=== PATIENT | male | born 1955 | race Caucasian/White ===

== ENCOUNTER 2017-08-23 09:33 | Day surgery (SDC) | payer OTHER, BC ==
[~2017-08-23] VITALS: Ht 182.9 cm; Wt 129.1 kg
[~2017-08-23 09:33] MED LIST: CENTRUM SILVER1 TA1; CLARITIN 1010 MG/TAB PO; DAYPRO 600600 MG; FERREX 150150 MG; LIALDA 1.2 GM1.2 GM PO; LIPITOR 40MG TA40 MG; POLY-IRON 150150 MG PO; PRILOSEC 20MG20 MG PO; SULFADIAZINE500 MG PO; ZYLOPRIM 300MG300 MG PO
[2017-08-23 10:07] VITALS: BP 133/83; PULSE 76; TEMP 98.8
[2017-08-23] MEDS ORDERED: PROTONIX 40MG T40 MG PO (10:19)
[2017-08-23] MEDS ORDERED: DEPO-TESTOS200 MG/M1 IM (10:22)
[2017-08-23] MEDS ORDERED: TUMS SMOOTHIES750 M1 PO (10:23)
[2017-08-23 11:09] VITALS: BP 119/82; PULSE 76; TEMP 97.7
[2017-08-23 11:15] VITALS: BP 128/94; PULSE 78
[2017-08-23 11:30] VITALS: BP 117/81; PULSE 71
== END 2017-08-23 11:45 | disposition home or self-care (01) ==
LOC: SDCO 09:33
DX: K21.0 Gastro-esophageal reflux disease with esophagitis (principal); K22.70 Barrett's esophagus without dysplasia; E78.00 Pure hypercholesterolemia, unspecified; K92.1 Melena; M19.90 Unspecified osteoarthritis, unspecified site; E66.9 Obesity, unspecified; K51.90 Ulcerative colitis, unspecified, without complications; F17.200 Nicotine dependence, unspecified, uncomplicated
CPT/HCPCS: OP; J2250; J3010; J7030

== ENCOUNTER 2018-08-22 09:18 | Day surgery (SDC) | payer OTHER, BC ==
[~2018-08-22] VITALS: Ht 177.8 cm; Wt 126.4 kg
[~2018-08-22 09:18] MED LIST changes: -DAYPRO 600600 MG; +DAYPRO 600600 MG PO; +DEPO-TESTOS200 MG/M1 IM; -LIPITOR 40MG TA40 MG; +LIPITOR 40MG TA40 MG PO; +PROTONIX 40MG T40 MG PO; +TUMS500 MG PO
[2018-08-22] MEDS ORDERED: COZAAR100 MG PO (09:54)
[2018-08-22 10:33] VITALS: BP 126/86; PULSE 70; TEMP 98.3
[2018-08-22 12:15] VITALS: BP 123/80; PULSE 74; TEMP 97.6
[2018-08-22 12:30] VITALS: BP 133/92; PULSE 56
[2018-08-22 12:45] VITALS: BP 140/90; PULSE 56
[2018-08-22 13:00] VITALS: BP 133/97; PULSE 57
== END 2018-08-22 13:30 | disposition home or self-care (01) ==
LOC: SDCO 09:18
DX: Z12.11 Encounter for screening for malignant neoplasm of colon (principal); K57.30 Diverticulosis of large intestine without perforation or abscess without bleeding; K51.20 Ulcerative (chronic) proctitis without complications; E78.00 Pure hypercholesterolemia, unspecified; K51.30 Ulcerative (chronic) rectosigmoiditis without complications; M19.90 Unspecified osteoarthritis, unspecified site; K92.1 Melena; M10.9 Gout, unspecified; K21.0 Gastro-esophageal reflux disease with esophagitis; K22.70 Barrett's esophagus without dysplasia; I10 Essential (primary) hypertension; E66.01 Morbid (severe) obesity due to excess calories; Z68.41 Body mass index [BMI] 40.0-44.9, adult; Z86.010 Personal history of colon polyps; Z88.2 Allergy status to sulfonamides; Z87.891 Personal history of nicotine dependence
CPT/HCPCS: J2250; J2704; J7030

== ENCOUNTER 2019-09-11 09:05 | Day surgery (SDC) | payer OTHER, BC ==
[~2019-09-11] VITALS: Ht 177.8 cm; Wt 125.0 kg
[~2019-09-11 09:05] MED LIST changes: +COZAAR100 MG PO
[2019-09-11 09:48] VITALS: BP 127/82; PULSE 60; TEMP 98.1
[2019-09-11 10:20] VITALS: BP 115/84; PULSE 63; TEMP 97.7
[2019-09-11 10:35] VITALS: BP 121/89; PULSE 54
[2019-09-11 10:50] VITALS: BP 122/82; PULSE 58
[2019-09-11 11:05] VITALS: BP 123/79; PULSE 53
--- NOTE | 2019-09-11 11:26 | NUR ---
Pt returned via cart to [facility]. Ambulated to recliner with SBA. Tolerated apple juice. VSS-see flowsheet. Dr Cervantes in to visit with pt and , Rochelle. IV removed and pressure dressing applied. Discharge teaching completed, pt and Rochelle verbalized understanding. Pt requested to ambulate upon dc to private vehicle for dc home with Rochelle to drive.
== END 2019-09-11 11:26 | disposition home or self-care (01) ==
LOC: SDCO 09:05
DX: K21.0 Gastro-esophageal reflux disease with esophagitis (principal); K22.70 Barrett's esophagus without dysplasia; E78.00 Pure hypercholesterolemia, unspecified; M19.90 Unspecified osteoarthritis, unspecified site; K92.1 Melena; K64.8 Other hemorrhoids; K51.30 Ulcerative (chronic) rectosigmoiditis without complications; M10.9 Gout, unspecified; G47.33 Obstructive sleep apnea (adult) (pediatric); I10 Essential (primary) hypertension; E66.01 Morbid (severe) obesity due to excess calories
CPT/HCPCS: J2704; J7120

== ENCOUNTER 2022-06-20 14:20 | Emergency (ER) | payer MEDICARE ==
[~2022-06-20] VITALS: Ht 180.3 cm; Wt 131.8 kg
[2022-06-20 14:45] VITALS: TEMP 99.1
[2022-06-20 15:53] LABS: BASO # 0.1 K/mm3 (0.0-0.2); BASO % 0.6 % (0.0-2.0); EOS # 0.2 K/mm3 (0.0-0.7); EOS % 2.1 % (0.0-4.0); GRAN # 6.3 K/mm3 (1.4-6.5); GRAN % 74.5 % (42.2-75.2); HEMATOCRIT 45.7 % (42.0-52.0); HEMOGLOBIN 14.9 g/dl (13.5-18.0); LYMPH # 1.4 K/mm3 (1.2-3.4); LYMPH % 16.6 % (20.0-51.0); MEAN CELL VOLUME 93 fl (80.0-100.0); MEAN CORPUSCULAR HEMOGLOBIN 30 pg (27-31); MEAN CORPUSCULAR HGB CONC 33 g/dl (33.0-37.0); MEAN PLATELET VOLUME 10.8 fl (7.4-10.4); MONO # 0.5 K/mm3 (0.1-0.6); MONO % 5.8 % (1.7-9.3); PLATELET COUNT 213 K/mm3 (130-400); RED BLOOD COUNT 4.92 M/mm3 (4.20-5.60); REDCELL DISTRIBUTION WIDTH-CV 14.1 % (11.5-14.5)
[2022-06-20 16:49] LABS: ALANINE AMINOTRANSFERASE 33 U/L (0-55); ALBUMIN 3.6 gm/dL (3.4-4.8); ALKALINE PHOSPHATASE 67 U/L (40-150); ANION GAP 9 mmol/L (7-16); AST,SGOT 22 U/L (5-34); BILIRUBIN,TOTAL 0.8 mg/dL (0.2-1.2); BLOOD UREA NITROGEN 23 mg/dL (8-26); CALCIUM 9.5 mg/dL (8.4-10.2); CARBON DIOXIDE 24 mmol/L (23-31); CHLORIDE 108 mmol/L (98-107); CREATININE, serum 1.69 mg/dL (0.72-1.25); GLUCOSE 128 mg/dL (70-99); POTASSIUM 3.8 mmol/L (3.5-4.5); SODIUM 141 mmol/L (136-145); TOTAL PROTEIN 6.9 gm/dL (6.2-8.1)
[2022-06-20 16:59] LABS: TROPONIN-I < 0.010 ng/mL (0.00-0.033)
[2022-06-20 17:45] VITALS: BP 131/82; PULSE 72
== END 2022-06-20 17:45 | disposition home or self-care (01) ==
LOC: COL.ER 14:20
PROVIDERS: Physician Assistant
DX: R55 Syncope and collapse (principal); R06.00 Dyspnea, unspecified; R42 Dizziness and giddiness; R79.89 Other specified abnormal findings of blood chemistry; E66.01 Morbid (severe) obesity due to excess calories; Z68.41 Body mass index [BMI] 40.0-44.9, adult
CPT/HCPCS: J7030